=== PATIENT | male | born 1970 | race Caucasian/White ===

== ENCOUNTER → 2019-07-02 | Outpatient (CLI) | payer OTHER ==
--- NOTE | 2019-07-02 16:40 | PCVCIMAG ---
APPROVED REPORT Study performed: 07/02/2019 15:26:37 Exam: Stress Echocardiogram Indication: Chest pain, palpitations, fatigue, fam hx cad Patient Location: Echo lab Stress Nurse: Rosemarie Cantor RN Status: routine Ht: 6 ft 2 in HR: 80 bpm BP: 144/84 mmHg Rhythm: NSR Procedure The patient underwent an Exercise Stress Test using the Alberto Protocol. Blood pressure, heart rate, and EKG were monitored. An Echocardiogram was performed by mobile lab technician in four stages in quad fashion. At peak stress, four selected images were obtained and placed side by side with resting images for comparison. Stress Test Details Stress Test: Exercise stress testing was performed using a Alberto protocol. HR Resting HR: 80 bpmMax Heart Rate (APMHR): 169 bpm Max HR Achieved: 164 bpmTarget HR (85% APMHR): 143 bpm % of APMHR: 97 Recovery HR: 97 bpm HR response to stress: Normal HR response to stress BP ECG Resting ECG: Sinus Rhythm Stress ECG: Sinus Rhythm ST Change: Normal Arrhythmia: Frequent multi-focal PVCs Recovery ECG: Sinus Rhythm Recovery ST Change: Normal Recovery Arrhythmia: frequent PVCs that resolved to NSR Clinical Reason for Termination: Maximal effort Stress Symptoms: Dyspnea, mild chest tightness Exercise duration: 7 min sec Highest Stage Achieved: Stage 3: 3.4 mph at 14% grade. Exercise capacity: 9.9 METs Overall Exercise Capacity for Age: Average Scale: Sedentary Angina Score: Non-Limiting Pre-Stress Echo The resting Echocardiogram showed normal left ventricular contractility with an estimated Ejection Fraction of about >55%. The resting echocardiogram demonstrated normal wall motion in all wall segments. Normal wall motion in all segments on baseline images. Post-Stress Echo The stress Echocardiogram showed left ventricular contractility with an estimated Ejection Fraction of about 65%. Compared to rest, there were no stress-induced wall motion abnormalities. Normal augmentation of wall motion in all segments on post stress images. Clinical No clinical or ECG evidence for ischemia. Conclusion Clinical Response: Non-ischemic Exercise Capacity: Average Stress ECG Response: Non-ischemic Stress Echo Images: Non-ischemic The left ventricle is normal in size and wall thickness in both the rest and stress images. Mild mitral regurgitation. Normal aortic and pulmonic valves. Trace tricuspid regurgitation with PAP of 31 mmHg. Other Information Study Quality: Adequate <Conclusion> The left ventricle is normal in size and wall thickness in both the rest and stress images. Mild mitral regurgitation. Normal aortic and pulmonic valves. Trace tricuspid regurgitation with PAP of 31 mmHg.
== END | disposition home or self-care (01) ==
LOC: PCVCIMAG 15:18
PROVIDERS: ATTEND Internal Medicine Cardiovascular Disease
DX: R00.2 Palpitations (principal); R53.83 Other fatigue; M10.9 Gout, unspecified; E78.5 Hyperlipidemia, unspecified; Z82.49 Family history of ischemic heart disease and other diseases of the circulatory system
CPT/HCPCS: 93325; 93351